=== PATIENT | female | born 1975 | race Hispanic/Latino ===

== ENCOUNTER 2022-07-09 08:58 | Emergency (ER) | payer OTHER ==
[~2022-07-09] VITALS: Ht 152.4 cm; Wt 51.6 kg
[2022-07-09] MEDS ORDERED: MORPHINE 4 MG SYG IM ONE (10:30)
[2022-07-09] MEDS ORDERED: IBUP-2070 PO (14:47)
[2022-07-09] MEDS ORDERED: ACET-2079 PO (14:47)
[2022-07-09] MEDS ORDERED: LIDOCAINE 5% TOPICAL PATCH TP ONE (15:00)
[2022-07-09] MEDS ORDERED: KETOROLAC 60 MG VIAL (30MG/ML) IM ONE (15:00)
[2022-07-09 15:16] VITALS: BP 111/57
== END 2022-07-09 15:16 | disposition home or self-care (01) ==
LOC: EDH 08:58
DX: S22.32XA Fracture of one rib, left side, initial encounter for closed fracture (principal); S00.83XA Contusion of other part of head, initial encounter; Z90.49 Acquired absence of other specified parts of digestive tract; W10.8XXA Fall (on) (from) other stairs and steps, initial encounter; Y93.89 Activity, other specified; Y92.89 Other specified places as the place of occurrence of the external cause; Y99.8 Other external cause status
CPT/HCPCS: 99285; 71101; 96372 ×2; J2270; J1885